=== PATIENT | female | born 1975 | race Two or more races ===

== ENCOUNTER 2021-02-05 09:50 | Emergency (ER) | payer OTHER ==
[~2021-02-05] VITALS: Ht 165.1 cm; Wt 79.8 kg
[~2021-02-05 09:50] MED LIST: FOLIC + B12 TAB1 TAB; LEVAQUIN750 MG; MISOPROSTOL200 MCG; PRENATAL1 TAB; PROTONIX40 MG; ZOFRAN4 MG
[2021-02-05] MEDS ORDERED: NORFLEX100MG PO (14:34)
[2021-02-05] MEDS ORDERED: KETO10TA2 PO (14:34)
== END 2021-02-05 14:44 | disposition home or self-care (01) ==
LOC: ER 09:50
DX: M54.5 Low back pain (principal)